=== PATIENT | female | born 1965 | race Two or more races ===

== ENCOUNTER 2020-03-19 12:02 | Inpatient (IN) | payer OTHER ==
[~2020-03-19] VITALS: Ht 167.6 cm; Wt 84.4 kg
[2020-03-31] MEDS ORDERED: VALSARTAN-HCTZ1 EAC3 PO (11:35)
[2020-03-31] MEDS ORDERED: SULINDAC200 MG PO (11:36)
[2020-03-31] MEDS ORDERED: SIMVASTATIN5 MG PO (11:37)
[2020-03-31] MEDS ORDERED: ZYPREXA ZYDIS20 MG PO (11:37)
[2020-03-31] MEDS ORDERED: CLONAZEPAM2 M1 PO (11:38)
[2020-03-31] MEDS ORDERED: DERMACINRX5000 UNIT PO (11:38)
[2020-03-31] MEDS ORDERED: TOPROL XL25 M1 PO (11:38)
[2020-04-07] MEDS ORDERED: CLEARLAX119 GM (08:26)
[2020-04-07] MEDS ORDERED: [UNRECOGNIZED DRUG - OTHER] (08:26)
[2020-04-07] MEDS ORDERED: VITAMIN D3250 MCG (08:27)
[2020-04-07] MEDS ORDERED: PANTOPRAZOLE SO40 MG (08:27)
[2020-04-07] MEDS ORDERED: SIMVASTATIN20 MG (08:27)
== END 2020-04-10 17:15 | disposition home or self-care (01) | DRG 331 ==
LOC: O/R 04-07 06:08 → SURG 04-07 06:08 → SURH 04-07 09:30 → EDBD 04-07 09:30 → SURH 04-07 11:15 → SURG 04-07 13:14
PROVIDERS: ADMIT Colon & Rectal Surgery; ATTEND Colon & Rectal Surgery
PROC: 0DBN4ZZ Excision of Sigmoid Colon, Percutaneous Endoscopic Approach (ICD-10-PCS; 2020-04-07)
PROC: 0DJD8ZZ Inspection of Lower Intestinal Tract, Via Natural or Artificial Opening Endoscopic (ICD-10-PCS; 2020-04-07)
PROC: 0DTP4ZZ Resection of Rectum, Percutaneous Endoscopic Approach (ICD-10-PCS; principal; 2020-04-07 11:15)
DX: K57.30 Diverticulosis of large intestine without perforation or abscess without bleeding (principal); K59.09 Other constipation; I10 Essential (primary) hypertension; Z20.828 Contact with and (suspected) exposure to other viral communicable diseases